=== PATIENT | female | born 2000 | race Caucasian/White ===

== ENCOUNTER 2020-06-22 15:38 | Emergency (ER) | payer MEDICAID ==
[~2020-06-22] VITALS: Ht 160 cm; Wt 81.6 kg
[2020-06-22 16:44] LABS: BASOPHILS % 0.5 % (0.0-2.0); EOSINOPHILS % 1.9 % (0.0-5.0); HEMATOCRIT. 33.8 % (36.0-48.0); HEMOGLOBIN. 11.3 g/dL (12.0-16.0); LYMPHOCYTES % 25.7 % (20.0-50.0); MEAN CORPUSCULAR HEMOGLOBIN 26.1 pg (28.0-32.0); MEAN CORPUSCULAR VOLUME 78.2 fL (81.0-99.0); MEAN PLATELET VOLUME 7.7 fl (7.4-10.4); MONOCYTES % 6.7 % (2.0-8.0); NEUTROPHILS % 65.2 % (40.0-76.0); PLATELET 255 x1000/uL (130-400); RED BLOOD CELL COUNT 4.32 mill/uL (4.2-5.4); RED CELL DISTRIBUTION WIDTH 17.7 % (11.6-14.6)
[2020-06-22 16:47] LABS: CHLORIDE 103 mEq/L (98-107)
[2020-06-22 17:12] LABS: B-HCG QUANTITATIVE 53125 mIU/mL (<3)
[2020-06-22 17:16] LABS: CLARITY URINE TURBID (CLEAR); COLOR URINE ORANGE (YELLOW); KETONES URINE TRACE (NEGATIVE); LEUKOCYTE ESTERASE URINE 2+ (NEGATIVE); NITRITE URINE NEGATIVE (NEGATIVE); OCCULT BLOOD URINE 3+ (NEGATIVE); PH URINE 5.5 (4.5-8.0); PROTEIN URINE 2+ (NEGATIVE); SPECIFIC GRAVITY URINE 1.034 (1.005-1.030)
[2020-06-22 18:55] VITALS: BP 117/83
== END 2020-06-22 19:00 | disposition home or self-care (01) ==
LOC: ER 15:38
DX: O20.8 Other hemorrhage in early pregnancy (principal); O26.891 Other specified pregnancy related conditions, first trimester; R10.2 Pelvic and perineal pain; Z3A.11 11 weeks gestation of pregnancy
CPT/HCPCS: 36415; 76801; 80053; 81003; 81025; 84702; 85025; 86850; 86900; 93005; 99285

== ENCOUNTER 2020-07-11 17:01 | Emergency (ER) | payer MEDICAID ==
[~2020-07-11] VITALS: Ht 160 cm; Wt 105.0 kg
[2020-07-11] MEDS ORDERED: ACETAMINOPHEN 325MG TABLET PO STA (18:10)
[2020-07-11 19:30] LABS: BASOPHILS % 0.2 % (0.0-2.0); HEMATOCRIT. 35.2 % (36.0-48.0); HEMOGLOBIN. 11.6 g/dL (12.0-16.0); LYMPHOCYTES % 20.8 % (20.0-50.0); MEAN CORPUSCULAR HEMOGLOBIN 25.7 pg (28.0-32.0); MEAN CORPUSCULAR VOLUME 77.9 fL (81.0-99.0); MEAN PLATELET VOLUME 8.1 fl (7.4-10.4); PLATELET 264 x1000/uL (130-400); RED BLOOD CELL COUNT 4.52 mill/uL (4.2-5.4); RED CELL DISTRIBUTION WIDTH 17.5 % (11.6-14.6)
[2020-07-11 19:38] LABS: CHLORIDE 106 mEq/L (98-107)
[2020-07-11 20:03] LABS: B-HCG QUANTITATIVE 35080 mIU/mL (<3)
[2020-07-11 20:45] LABS: CLARITY URINE TURBID (CLEAR); COLOR URINE DARK YELLOW (YELLOW); KETONES URINE 1+ (NEGATIVE); LEUKOCYTE ESTERASE URINE 1+ (NEGATIVE); NITRITE URINE NEGATIVE (NEGATIVE); OCCULT BLOOD URINE 3+ (NEGATIVE); PROTEIN URINE 1+ (NEGATIVE); SPECIFIC GRAVITY URINE 1.033 (1.005-1.030)
[2020-07-11 21:04] VITALS: BP 161/74
== END 2020-07-11 21:05 | disposition home or self-care (01) ==
LOC: ER 17:01
DX: O26.891 Other specified pregnancy related conditions, first trimester (principal); R10.9 Unspecified abdominal pain; O23.41 Unspecified infection of urinary tract in pregnancy, first trimester; I10 Essential (primary) hypertension; Z3A.14 14 weeks gestation of pregnancy
CPT/HCPCS: 36415; 76801; 80053; 81003; 81025; 84702; 85025; 86850; 86900; 93005; 99285

== ENCOUNTER 2020-09-02 16:42 | Observation (INO) | payer MEDICAID ==
[~2020-09-02] VITALS: Ht 160 cm; Wt 99.8 kg
[2020-09-02] MEDS ORDERED: [UNRECOGNIZED DRUG - CODE] PO (17:35)
[2020-09-02] MEDS ORDERED: ACETAMINOPHEN 500MG TABLET PO NR (18:30)
[2020-09-02 19:14] LABS: CLARITY URINE CLEAR (CLEAR); COLOR URINE YELLOW (YELLOW); KETONES URINE 4+ (NEGATIVE); LEUKOCYTE ESTERASE URINE TRACE (NEGATIVE); NITRITE URINE NEGATIVE (NEGATIVE); OCCULT BLOOD URINE TRACE (NEGATIVE); PH URINE 6.5 (4.5-8.0); PROTEIN URINE TRACE (NEGATIVE); SPECIFIC GRAVITY URINE 1.022 (1.005-1.030)
[2020-09-02] MEDS ORDERED: LACTATED RINGERS 1,000 ML IV SCH (20:15)
[2020-09-02] MEDS ORDERED: CEFAZOLIN 2,000 MG in DEXT 5% WATER 100 ML IV NR (20:45)
== END 2020-09-02 21:48 | disposition home or self-care (01) ==
LOC: ER 16:42 → 8 EST LDRP 17:07
PROVIDERS: ADMIT Obstetrics & Gynecology; ATTEND Obstetrics & Gynecology
DX: O26.892 Other specified pregnancy related conditions, second trimester (principal); R10.2 Pelvic and perineal pain; Z3A.22 22 weeks gestation of pregnancy
CPT/HCPCS: 59025; 81003; 96365; G0378; J0690; J7060; 99281

== ENCOUNTER 2020-12-06 06:52 | Observation (INO) | payer MEDICAID ==
[~2020-12-06] VITALS: Ht 160 cm; Wt 117.9 kg
[~2020-12-06 06:52] MED LIST: [UNRECOGNIZED DRUG - CODE] PO
[2020-12-06 13:30] LABS: PARTIAL THROMBOPLASTIN TIME 33.9 sec (23.4-31.0); PROTHROMBIN TIME 10.3 sec (9.6-11.0)
[2020-12-06 13:32] LABS: CLARITY URINE CLOUDY (CLEAR); COLOR URINE YELLOW (YELLOW); KETONES URINE TRACE (NEGATIVE); LEUKOCYTE ESTERASE URINE 1+ (NEGATIVE); NITRITE URINE NEGATIVE (NEGATIVE); OCCULT BLOOD URINE NEGATIVE (NEGATIVE); PROTEIN URINE TRACE (NEGATIVE); SPECIFIC GRAVITY URINE 1.023 (1.005-1.030); UROBILINOGEN URINE 0.2 E.U./dL (0.2-1.0)
[2020-12-06 13:42] LABS: METHADONE URINE SCREEN NEGATIVE (NEGATIVE)
[2020-12-06 13:43] LABS: *AMPHETAMINES SCREEN URINE NEGATIVE (NEGATIVE); CANNABINOID URINE SCREEN NEGATIVE (NEGATIVE); OPIATES URINE SCREEN NEGATIVE (NEGATIVE); PHENCYCLIDINE URINE SCREEN NEGATIVE (NEGATIVE)
[2020-12-06 13:44] LABS: *BENZODIAZEPINES SCREEN URINE NEGATIVE (NEGATIVE); *COCAINE SCREEN URINE NEGATIVE (NEGATIVE)
[2020-12-06 13:48] LABS: *BARBITURATES SCREEN URINE NEGATIVE (NEGATIVE)
[2020-12-06 14:01] LABS: HEPATITIS B SURFACE ANTIGEN NEGATIVE
[2020-12-06] MEDS ORDERED: LIDOCAINE HCL 1% 20ML VIAL (Pyxis) INJ INFIL SCH (14:30)
[2020-12-06] MEDS ORDERED: LACTATED RINGERS 1,000 ML IV SCH (14:45)
[2020-12-06] MEDS ORDERED: CEFAZOLIN SODIUM 1000MG/VIAL ONE ×2 (14:58→14:59)
[2020-12-06] MEDS ORDERED: CEFAZOLIN 2,000 MG in DEXT 5% WATER 100 ML IV SCH (15:00)
[2020-12-06 15:17] LABS: BASOPHILS % 0.3 % (0.0-2.0); EOSINOPHILS % 0.5 % (0.0-5.0); HEMATOCRIT. 28.5 % (36.0-48.0); MEAN CORPUSCULAR HEMOGLOBIN 22.7 pg (28.0-32.0); MEAN CORPUSCULAR VOLUME 71.7 fL (81.0-99.0); MEAN PLATELET VOLUME 8.1 fl (7.4-10.4); MONOCYTES % 5.3 % (2.0-8.0); NEUTROPHILS % 78.9 % (40.0-76.0); PLATELET 329 x1000/uL (130-400); RED BLOOD CELL COUNT 3.98 mill/uL (4.2-5.4)
== END 2020-12-06 17:20 | disposition home or self-care (01) ==
LOC: 8 EST LDRP 06:52
PROVIDERS: ADMIT Obstetrics & Gynecology; ATTEND Obstetrics & Gynecology
DX: L02.11 Cutaneous abscess of neck (principal); Z79.899 Other long term (current) drug therapy
CPT/HCPCS: 10060; 36415; 59025; 70490; 80305; 81003; 85025; 85610; 85730; 86592; 86703; 86762; 86850; 86900; 86901; 87340; 96361; 96365; G0378; J0690; J3490; J7060; 96360; 99281; J7120

== ENCOUNTER 2020-12-31 23:58 | Inpatient (IN) | payer MEDICAID ==
[~2020-12-31] VITALS: Ht 157.5 cm; Wt 120.7 kg
[2021-01-01] MEDS ORDERED: NALOXONE HCL 0.4 MG/ML 1ML VIAL IM PRN (02:45)
[2021-01-01] MEDS ORDERED: METHYLERGONOVINE MALEATE 0.2 MG/ML IM PRN (02:45)
[2021-01-01] MEDS ORDERED: CARBOPROST TROMETHAMINE 250 MCG/ML AMPUL IM PRN (02:45)
[2021-01-01] MEDS: LACTATED RINGERS 1,000 ML IV SCH ×3 (03:22→15:30)
[2021-01-01] MEDS ORDERED: PENICILLIN G POTASSIUM 5 MMU in DEXT 5% WATER 100 ML IV SCH (03:30)
[2021-01-01] MEDS ORDERED: MISOPROSTOL 200MCG TABLET VG SCH (03:30)
[2021-01-01] MEDS ORDERED: LIDOCAINE HCL 1% 20ML VIAL (Pyxis) INJ INFIL SCH (03:30)
[2021-01-01] MEDS: DEXT 5%/LR + PITOCIN 20UNITS/L 1,000 ML IV SCH (03:44)
[2021-01-01 04:13] LABS: BASOPHILS % 0.5 % (0.0-2.0); EOSINOPHILS % 2.1 % (0.0-5.0); HEMATOCRIT. 27.4 % (36.0-48.0); HEMOGLOBIN. 8.5 g/dL (12.0-16.0); MEAN CORPUSCULAR HEMOGLOBIN 21.6 pg (28.0-32.0); MEAN CORPUSCULAR VOLUME 69.4 fL (81.0-99.0); MEAN PLATELET VOLUME 8.3 fl (7.4-10.4); MONOCYTES % 6.3 % (2.0-8.0); NEUTROPHILS % 61.1 % (40.0-76.0); PLATELET 257 x1000/uL (130-400); RED BLOOD CELL COUNT 3.95 mill/uL (4.2-5.4); RED CELL DISTRIBUTION WIDTH 19.3 % (11.6-14.6)
[2021-01-01 04:33] LABS: INR 0.9; PARTIAL THROMBOPLASTIN TIME 30.5 sec (23.4-31.0)
[2021-01-01 05:03] LABS: CLARITY URINE CLOUDY (CLEAR); COLOR URINE YELLOW (YELLOW); KETONES URINE TRACE (NEGATIVE); LEUKOCYTE ESTERASE URINE 1+ (NEGATIVE); NITRITE URINE NEGATIVE (NEGATIVE); OCCULT BLOOD URINE NEGATIVE (NEGATIVE); PROTEIN URINE 1+ (NEGATIVE)
[2021-01-01 05:04] LABS: HEPATITIS B SURFACE ANTIGEN NEGATIVE
[2021-01-01 05:06] LABS: PLATELET ESTIMATE NORMAL
[2021-01-01 05:29] LABS: *AMPHETAMINES SCREEN URINE NEGATIVE (NEGATIVE); *BENZODIAZEPINES SCREEN URINE NEGATIVE (NEGATIVE); *COCAINE SCREEN URINE NEGATIVE (NEGATIVE); CANNABINOID URINE SCREEN NEGATIVE (NEGATIVE); METHADONE URINE SCREEN NEGATIVE (NEGATIVE); OPIATES URINE SCREEN NEGATIVE (NEGATIVE); PHENCYCLIDINE URINE SCREEN NEGATIVE (NEGATIVE)
[2021-01-01 05:30] LABS: *BARBITURATES SCREEN URINE NEGATIVE (NEGATIVE)
[2021-01-01] MEDS ORDERED: ROPIVACAINE HCL 2MG/ML (0.2%) 100ML BAG IR ONE (07:15)
[2021-01-01] MEDS ORDERED: ROPIVACAINE HCL/PF EPIDURAL 200 ML EPI NR ×3 (07:30→18:15)
[2021-01-01] MEDS: PENICILLIN G POTASSIUM 2.5 MMU in DEXTROSE 5% WATER 50 ML IV SCH ×5 (07:38→23:30)
[2021-01-01] MEDS ORDERED: FENTANYL CITRATE/PF 50MCG/ML 2ML VIAL ONE (07:48)
[2021-01-01] MEDS ORDERED: BUPIVACAINE HCL/PF 0.25% (2.5MG/ML) 10ML ONE (07:48)
[2021-01-01] MEDS: BUTORPHANOL TARTRATE 2 MG/ML VIAL IV PRN ×2 (10:55→13:58)
[2021-01-01] MEDS ORDERED: ROPIVACAINE HCL 10MG/ML 20 ML VIAL EPI ONE (18:00)
[2021-01-02] MEDS: DEXT 5%/LR + PITOCIN 20UNITS/L 1,000 ML IV SCH (02:13)
[2021-01-02] MEDS: PENICILLIN G POTASSIUM 2.5 MMU in DEXTROSE 5% WATER 50 ML IV SCH (03:58)
[2021-01-02] MEDS: LACTATED RINGERS 1,000 ML IV SCH (03:58)
[2021-01-02] MEDS ORDERED: METOCLOPRAMIDE HCL 10MG/2ML VIAL IV NR (04:00)
[2021-01-02] MEDS ORDERED: CITRIC ACID/SODIUM CITRATE SOLN 30ML UDC PO NR (04:00)
[2021-01-02] MEDS ORDERED: ONDANSETRON HCL 4MG/2ML INJ IV NR (04:00)
[2021-01-02] MEDS ORDERED: MORPHINE SULFATE/PF 1MG/ML 10ML AMP ONE (04:04)
[2021-01-02] MEDS ORDERED: OXYTOCIN 10 UNITS/ML 1ML ONE (05:13)
[2021-01-02] MEDS ORDERED: PHENYLEPHRINE HCL 10 MG/ML 1ML (IV VIAL) IV ONE (05:13)
[2021-01-02] MEDS ORDERED: CEFAZOLIN SODIUM 1000MG/VIAL ONE (05:13)
[2021-01-02] MEDS ORDERED: KETOROLAC 60MG/2ML VIAL IM ONE (05:26)
[2021-01-02] MEDS ORDERED: DIPHENHYDRAMINE 50MG/ML VIAL IM PRN (05:30)
[2021-01-02] MEDS ORDERED: MEPERIDINE HCL/PF 25MG/ML CPJ IV PRN (05:30)
[2021-01-02] MEDS ORDERED: MORPHINE SULFATE 2 MG/ML CPJ (NOT FOR IM USE) IV PRN (05:30)
[2021-01-02] MEDS ORDERED: HYDROMORPHONE HCL/PF 2MG/ML CPJ IV PRN (05:30)
[2021-01-02] MEDS ORDERED: SODIUM CHLORIDE 0.9% 1,000 ML IV ONE (05:30)
[2021-01-02] MEDS ORDERED: ONDANSETRON HCL 4MG/2ML INJ IV PRN ×2 (05:30→06:00)
[2021-01-02] MEDS ORDERED: DEXT 5%/LR + PITOCIN 20UNITS/L 1,000 ML IV SCH (06:00)
[2021-01-02] MEDS ORDERED: LANOLIN OINT 7GM TUBE TOP PRN (06:00)
[2021-01-02] MEDS ORDERED: HEMORRHOIDAL SUPP PR PRN (06:00)
[2021-01-02] MEDS ORDERED: IBUPROFEN 400MG TABLET PO PRN (06:00)
[2021-01-02] MEDS ORDERED: DIPHENHYDRAMINE 25MG CAPSULE PO PRN (06:00)
[2021-01-02] MEDS ORDERED: RHO(D) IMMUNE GLOBULIN 300 MCG/SYR IM PRN (06:00)
[2021-01-02] MEDS ORDERED: HYDROCODONE/ACETAMINOPHEN 5/325MG TABLET PO PRN (06:00)
[2021-01-02] MEDS ORDERED: BISACODYL 10MG SUPP PR PRN (06:00)
[2021-01-02 09:15] VITALS: BP 101/49
[2021-01-02 09:45] VITALS: BP 98/45
[2021-01-02 12:40] VITALS: BP 105/45
[2021-01-02 15:41] VITALS: BP 110/50
[2021-01-02 20:00] VITALS: BP 101/57
[2021-01-02] MEDS: DOCUSATE SODIUM 100MG CAPSULE PO SCH (21:19)
[2021-01-02] MEDS: SIMETHICONE 80MG TABLET CHEW PO SCH (21:20)
[2021-01-03] MEDS: IBUPROFEN 800MG TABLET PO PRN ×3 (00:08→15:14)
[2021-01-03 04:50] VITALS: BP 96/57
[2021-01-03 05:51] LABS: BASOPHILS % 0.4 % (0.0-2.0); EOSINOPHILS % 1.1 % (0.0-5.0); HEMATOCRIT. 21.9 % (36.0-48.0); LYMPHOCYTES % 17.4 % (20.0-50.0); MEAN CORPUSCULAR VOLUME 68.6 fL (81.0-99.0); MEAN PLATELET VOLUME 7.8 fl (7.4-10.4); MONOCYTES % 7.5 % (2.0-8.0); NEUTROPHILS % 73.6 % (40.0-76.0); PLATELET 206 x1000/uL (130-400); RED CELL DISTRIBUTION WIDTH 19.3 % (11.6-14.6)
[2021-01-03] MEDS: FERROUS SULFATE 325MG TABLET PO SCH ×2 (09:27→15:15)
[2021-01-03] MEDS: SIMETHICONE 80MG TABLET CHEW PO SCH ×2 (09:27→22:25)
[2021-01-03] MEDS: PRENATAL VIT/FE FUMARATE/FA TABLET PO SCH (09:28)
[2021-01-03 15:17] VITALS: BP 106/48
[2021-01-03 20:00] VITALS: BP 128/56
[2021-01-03] MEDS: DOCUSATE SODIUM 100MG CAPSULE PO SCH (22:24)
[2021-01-04] MEDS: IBUPROFEN 800MG TABLET PO PRN ×2 (01:18→08:27)
[2021-01-04 04:00] VITALS: BP 100/54
[2021-01-04] MEDS ORDERED: IBUP-2030 PO (06:11)
[2021-01-04 07:55] VITALS: BP 102/54
[2021-01-04] MEDS: SIMETHICONE 80MG TABLET CHEW PO SCH (08:26)
[2021-01-04] MEDS: FERROUS SULFATE 325MG TABLET PO SCH (08:27)
[2021-01-04] MEDS: PRENATAL VIT/FE FUMARATE/FA TABLET PO SCH (08:27)
== END 2021-01-04 12:15 | disposition home or self-care (01) | DRG 540 ==
LOC: 8 EST LDRP 23:58 → OBSVTOIN 23:58 → 8EST 01-02 09:23
PROVIDERS: ADMIT Obstetrics & Gynecology; ATTEND Obstetrics & Gynecology
PROC: 10D00Z1 Extraction of Products of Conception, Low, Open Approach (ICD-10-PCS; principal; 2021-01-02)
DX: O36.63X0 Maternal care for excessive fetal growth, third trimester, not applicable or unspecified (principal); O99.02 Anemia complicating childbirth; O32.4XX0 Maternal care for high head at term, not applicable or unspecified; O62.0 Primary inadequate contractions; Z20.822 Contact with and (suspected) exposure to COVID-19; D62 Acute posthemorrhagic anemia; Z37.0 Single live birth; Z3A.40 40 weeks gestation of pregnancy
CPT/HCPCS: 36415; 76805; 76818; 80305; 81003; 85025; 86592; 86703; 86762; 86850; 86900; 86920; 87340; 87426; 88307; 99281; J0595; J0690; J1885; J2274; J2370; J2405; J2540; J2590; J2765; J2795; J3010; J3490; J7060; J7120; A4315